=== PATIENT | female | born 1995 | race Caucasian/White ===

== ENCOUNTER → 2016-11-06 | Day surgery (SDC) | payer OTHER ==
[~2016-11-06] VITALS: Ht 180.3 cm; Wt 113.4 kg
[~2016-11-06] MED LIST: IBUPROFEN800 MG PO; KEFLEX500 MG PO; NORCO 10-325 T1 EACH PO; VITAMIN C 500500 MG PO
[2016-11-06 06:49] LABS: RED BLOOD COUNT 4.82 M/UL (4.00-5.10); WHITE BLOOD COUNT 8.1 K/UL (4.5-11.0)
[2016-11-06 07:09] LABS: BUN/CREATININE RATIO 17 (0-10)
== END | disposition home or self-care (01) ==
LOC: OR 05:57
PROVIDERS: Podiatrist Foot & Ankle Surgery
PROC: 0MQR0ZZ Repair Left Ankle Bursa and Ligament, Open Approach (ICD-10-PCS; 2016-11-06)
PROC: 0QSK04Z Reposition Left Fibula with Internal Fixation Device, Open Approach (ICD-10-PCS; principal; 2016-11-06 07:45)
DX: S82.832K Other fracture of upper and lower end of left fibula, subsequent encounter for closed fracture with nonunion (principal); M25.372 Other instability, left ankle; M24.072 Loose body in left ankle; M13.872 Other specified arthritis, left ankle and foot; X50.1XXD Overexertion from prolonged static or awkward postures, subsequent encounter
CPT/HCPCS: 36415; 80048; 82652; 84703; 85027; J0690; J1100; J2250; J2405; J2710; J2795; J3010; J3370; J7120